=== PATIENT | male | born 1945 | race Caucasian/White ===

== ENCOUNTER 2019-07-17 14:04 | Inpatient (IN) ==
[2019-07-17 15:02] LABS: Basophils % 0.1 % (0.0-0.8); Eosinophils % 0.1 % (0.00-10.9); Hematocrit 42.6 VOL% (42.0-52.0); Hemoglobin 14.4 GM/DL (14.0-18.0); Immature Granulocytes % 0.4 %; Immature Granulocytes Absolute 0.05 #; Lymphocytes # 0.5 10*3/uL (1.4-4.0); Lymphocytes % 4.1 % (21.2-54.2); Mean Corpuscular HGB Conc 33.8 GM/DL (32-36); Mean Corpuscular Volume 91.6 FL (87-102); Monocytes % 4.8 % (1.7-12.7); Neutrophils % 90.5 % (38.7-73.9); Platelet Count 162 T/CUMM (130-400); Red Blood Count 4.65 MC/CUMM (3.8-5.5); Red Cell Distribution Width 13.5 % (9.3-17.3); White Blood Count 12.1 T/CUMM (4-12)
[2019-07-17 15:21] LABS: Lymphocytes 5 % (20-55); Ovalocytes Slight; Platelet Estimate Normal; Segmented Neutrophils 90 % (50-85); Total Cells Counted 100
[2019-07-17 15:29] LABS: Albumin 3.7 G/DL (3.4-5.0); Calcium 8.4 MG/DL (8.5-10.1); Osmolality,Calculated 280.7 MOS/KG (273-304); Total Protein 6.9 G/DL (6.4-8.3)
[2019-07-17 15:33] LABS: Apearance,Urine CLEAR (Clear); Bilirubin,Urine Negative (Negative); Blood, Urine Negative (Negative); Glucose,Urine (UA) 50 mg/dL (Negative); Ketones,Urine 5 mg/dL (Negative); Mucus,Urine Occasional /LPF (Occasional); Nitrite,Urine Negative (Negative); Protein,Urine Negative; RBC,Urine 3 /HPF (0-4); Squamous Epithelial Cell,Urine Occasional /HPF (0-10); Urine Color Dark yellow (Yellow); Urine Specific Gravity 1.027 (1.001-1.035); WBC,Urine 1 /HPF (0-6)
[2019-07-17] MEDS ORDERED: CIPROFLOXACIN INJ 400 MG in PREMIX 1 EACH IV STA (16:14)
[2019-07-17] MEDS ORDERED: metroNIDAZOLE INJ 500 MG in PREMIX 1 EACH IV STA (16:14)
[2019-07-17] MEDS ORDERED: SODIUM CHLORIDE 0.9% 1,000 ML IV STA (16:14)
[2019-07-17] MEDS ORDERED: ONDANSETRON 4 MG/2 ML VIAL IV STA (16:16)
[2019-07-17] MEDS ORDERED: MORPHINE 4 MG/1 ML VIAL IV ONE (16:16)
[2019-07-17] MEDS ORDERED: diphenhydrAMINE CAP 25 MG CAPSULE PO PRN (16:30)
[2019-07-17] MEDS ORDERED: ZALEPLON 5 MG CAPSULE PO PRN (16:30)
[2019-07-17] MEDS ORDERED: PROMETHAZINE 25 MG TABLET PO PRN (16:30)
[2019-07-17] MEDS ORDERED: guaiFENesin/DM ER 600-30 MG TABLET PO PRN (16:30)
[2019-07-17] MEDS ORDERED: ACETAMINOPHEN 325 MG TABLET ONE (16:52)
[2019-07-17] MEDS ORDERED: GLUCAGON 1 MG VIAL IM PRN (16:58)
[2019-07-17] MEDS ORDERED: DEXTROSE 50% 25 GM/50 ML VIAL IV PRN (16:58)
[2019-07-17] MEDS ORDERED: INFLUENZA VIRUS VACCINE 0.5 ML SYRINGE IM ONE (18:43)
[2019-07-17] MEDS: cefTRIAXone 1,000 MG in SYRINGE 1 EACH IV SCH (19:03)
[2019-07-17] MEDS: PANTOPRAZOLE 40 MG TABLET PO SCH (19:03)
[2019-07-17] MEDS: SODIUM CHLORIDE 0.9% 1,000 ML IV SCH (19:03)
[2019-07-17] MEDS: INSULIN LISPRO 100 UNIT/ML SUBCUT SCH (20:26)
[2019-07-17] MEDS: FENOFIBRATE 145 MG TABLET PO SCH (20:42)
[2019-07-17] MEDS: EZETIMIBE 10 MG TABLET PO SCH (20:42)
[2019-07-17] MEDS: carvediloL 6.25 MG TABLET PO SCH (20:43)
[2019-07-17] MEDS: SIMVASTATIN 40 MG TABLET PO SCH (20:43)
[2019-07-17] MEDS: clonazePAM 0.5 MG TABLET PO PRN (20:47)
[2019-07-17] MEDS: ENOXAPARIN 40 MG/0.4 ML SYRINGE SUBCUT SCH (23:15)
[2019-07-18] MEDS: metroNIDAZOLE INJ 500 MG in PREMIX 1 EACH IV SCH ×3 (00:33→15:37)
[2019-07-18 04:51] LABS: Basophils % 0.2 % (0.0-0.8); Hematocrit 38.3 VOL% (42.0-52.0); Hemoglobin 12.9 GM/DL (14.0-18.0); Immature Granulocytes % 0.5 %; Immature Granulocytes Absolute 0.07 #; Lymphocytes # 0.9 10*3/uL (1.4-4.0); Lymphocytes % 6.1 % (21.2-54.2); Mean Corpuscular HGB Conc 33.7 GM/DL (32-36); Mean Corpuscular Volume 91.8 FL (87-102); Mean Platelet Volume 10.6 FL (9.6-12.0); Monocytes % 3.9 % (1.7-12.7); Neutrophils % 89.3 % (38.7-73.9); Platelet Count 151 T/CUMM (130-400); Red Blood Count 4.17 MC/CUMM (3.8-5.5); Red Cell Distribution Width 13.6 % (9.3-17.3)
[2019-07-18 05:17] LABS: Albumin 3.2 G/DL (3.4-5.0); Bilirubin,Total 1.2 MG/DL (0.2-1.0); Calcium 8.2 MG/DL (8.5-10.1); Total Protein 6.3 G/DL (6.4-8.3)
[2019-07-18] MEDS: INSULIN LISPRO 100 UNIT/ML SUBCUT SCH ×4 (08:09→22:18)
[2019-07-18] MEDS: CLOPIDOGREL 75 MG TABLET PO SCH (08:18)
[2019-07-18] MEDS: PANTOPRAZOLE 40 MG TABLET PO SCH (08:18)
[2019-07-18] MEDS: ASPIRIN EC 325 MG TABLET PO SCH (08:18)
[2019-07-18] MEDS: PARoxetine 20 MG TABLET PO SCH (08:18)
[2019-07-18] MEDS: SODIUM CHLORIDE 0.9% 1,000 ML IV SCH ×2 (08:27→22:19)
[2019-07-18] MEDS: carvediloL 6.25 MG TABLET PO SCH ×2 (09:53→20:45)
[2019-07-18] MEDS: POTASSIUM CHLORIDE 20 MEQ TABLET PO PRN ×4 (09:57→20:46)
[2019-07-18] MEDS: ONDANSETRON 4 MG/2 ML VIAL IV PRN (15:36)
[2019-07-18] MEDS: cefTRIAXone 1,000 MG in SYRINGE 1 EACH IV SCH (17:53)
[2019-07-18] MEDS: clonazePAM 0.5 MG TABLET PO PRN (20:45)
[2019-07-18] MEDS: FENOFIBRATE 145 MG TABLET PO SCH (20:45)
[2019-07-18] MEDS: SIMVASTATIN 40 MG TABLET PO SCH (20:45)
[2019-07-18] MEDS: EZETIMIBE 10 MG TABLET PO SCH (20:47)
[2019-07-18] MEDS: ENOXAPARIN 40 MG/0.4 ML SYRINGE SUBCUT SCH (20:51)
[2019-07-18] MEDS: MORPHINE 4 MG/1 ML VIAL IV PRN (22:13)
[2019-07-19] MEDS: metroNIDAZOLE INJ 500 MG in PREMIX 1 EACH IV SCH ×3 (00:59→17:10)
[2019-07-19] MEDS: MORPHINE 4 MG/1 ML VIAL IV PRN (05:12)
[2019-07-19] MEDS: INSULIN LISPRO 100 UNIT/ML SUBCUT SCH ×4 (07:40→21:58)
[2019-07-19 08:19] LABS: Basophils % 0.2 % (0.0-0.8); Eosinophils % 0.3 % (0.00-10.9); Immature Granulocytes % 0.9 %; Immature Granulocytes Absolute 0.11 #; Lymphocytes # 0.6 10*3/uL (1.4-4.0); Lymphocytes % 4.8 % (21.2-54.2); Mean Corpuscular HGB Conc 32.5 GM/DL (32-36); Mean Corpuscular Volume 94.1 FL (87-102); Mean Platelet Volume 10.4 FL (9.6-12.0); Neutrophils % 89.8 % (38.7-73.9); Platelet Count 152 T/CUMM (130-400); Red Blood Count 4.25 MC/CUMM (3.8-5.5); White Blood Count 12.2 T/CUMM (4-12)
[2019-07-19 08:40] LABS: Albumin 2.9 G/DL (3.4-5.0); Bilirubin,Direct 0.27 MG/DL (0.0-0.20); Bilirubin,Indirect 1.1 MG/DL (0.0-1.0); Bilirubin,Total 1.4 MG/DL (0.2-1.0); Osmolality,Calculated 282.1 MOS/KG (273-304); Total Protein 5.7 G/DL (6.4-8.3)
[2019-07-19 08:47] LABS: Hypochromasia 1+; Lymphocytes 10 % (20-55); Platelet Estimate Adequate; Segmented Neutrophils 86 % (50-85); Total Cells Counted 100
[2019-07-19] MEDS: ASPIRIN EC 325 MG TABLET PO SCH (09:22)
[2019-07-19] MEDS: PANTOPRAZOLE 40 MG TABLET PO SCH (09:23)
[2019-07-19] MEDS: CLOPIDOGREL 75 MG TABLET PO SCH (09:23)
[2019-07-19] MEDS: carvediloL 6.25 MG TABLET PO SCH ×2 (09:23→21:54)
[2019-07-19] MEDS: PARoxetine 20 MG TABLET PO SCH (09:23)
[2019-07-19] MEDS: SODIUM CHLORIDE 0.9% 1,000 ML IV SCH (14:14)
[2019-07-19] MEDS: SIMVASTATIN 40 MG TABLET PO SCH (21:53)
[2019-07-19] MEDS: cefTRIAXone 1,000 MG in SYRINGE 1 EACH IV SCH (21:54)
[2019-07-19] MEDS: ENOXAPARIN 40 MG/0.4 ML SYRINGE SUBCUT SCH (21:54)
[2019-07-19] MEDS: FENOFIBRATE 145 MG TABLET PO SCH (21:54)
[2019-07-19] MEDS: EZETIMIBE 10 MG TABLET PO SCH (21:54)
[2019-07-20] MEDS: metroNIDAZOLE INJ 500 MG in PREMIX 1 EACH IV SCH ×3 (02:19→17:51)
[2019-07-20] MEDS: SODIUM CHLORIDE 0.9% 1,000 ML IV SCH ×2 (04:40→22:05)
[2019-07-20 05:07] LABS: Basophils % 0.1 % (0.0-0.8); Eosinophils # 0.2 10*3/uL (0.0-0.87); Eosinophils % 1.6 % (0.00-10.9); Hemoglobin 13.3 GM/DL (14.0-18.0); Immature Granulocytes % 0.6 %; Immature Granulocytes Absolute 0.06 #; Lymphocytes # 0.7 10*3/uL (1.4-4.0); Lymphocytes % 6.4 % (21.2-54.2); Mean Corpuscular HGB Conc 33.3 GM/DL (32-36); Mean Corpuscular Volume 93.5 FL (87-102); Mean Platelet Volume 10.5 FL (9.6-12.0); Monocytes % 5.7 % (1.7-12.7); Neutrophils % 85.6 % (38.7-73.9); Platelet Count 163 T/CUMM (130-400); Red Blood Count 4.28 MC/CUMM (3.8-5.5); Red Cell Distribution Width 13.7 % (9.3-17.3); White Blood Count 10.2 T/CUMM (4-12)
[2019-07-20 05:20] LABS: Albumin 2.7 G/DL (3.4-5.0); Bilirubin,Direct 0.2 MG/DL (0.0-0.20); Bilirubin,Indirect 0.7 MG/DL (0.0-1.0); Bilirubin,Total 0.9 MG/DL (0.2-1.0); Calcium 8.3 MG/DL (8.5-10.1); Osmolality,Calculated 282.1 MOS/KG (273-304); Total Protein 6.2 G/DL (6.4-8.3)
[2019-07-20] MEDS: INSULIN LISPRO 100 UNIT/ML SUBCUT SCH ×4 (08:09→22:02)
[2019-07-20] MEDS: POTASSIUM CHLORIDE 20 MEQ TABLET PO PRN ×2 (09:02→18:04)
[2019-07-20] MEDS: PARoxetine 20 MG TABLET PO SCH (09:02)
[2019-07-20] MEDS: ASPIRIN EC 325 MG TABLET PO SCH (09:03)
[2019-07-20] MEDS: PANTOPRAZOLE 40 MG TABLET PO SCH (09:03)
[2019-07-20] MEDS: CLOPIDOGREL 75 MG TABLET PO SCH (09:03)
[2019-07-20] MEDS: carvediloL 6.25 MG TABLET PO SCH ×2 (09:03→22:02)
[2019-07-20] MEDS: CIPROFLOXACIN INJ 400 MG in PREMIX 1 EACH IV SCH (14:51)
[2019-07-20] MEDS: ONDANSETRON 4 MG/2 ML VIAL IV PRN (16:27)
[2019-07-20] MEDS: EZETIMIBE 10 MG TABLET PO SCH (22:02)
[2019-07-20] MEDS: SIMVASTATIN 40 MG TABLET PO SCH (22:02)
[2019-07-20] MEDS: ENOXAPARIN 40 MG/0.4 ML SYRINGE SUBCUT SCH (22:02)
[2019-07-20] MEDS: FENOFIBRATE 145 MG TABLET PO SCH (22:02)
[2019-07-21] MEDS: MORPHINE 4 MG/1 ML VIAL IV PRN (00:27)
[2019-07-21] MEDS: metroNIDAZOLE INJ 500 MG in PREMIX 1 EACH IV SCH ×3 (00:29→18:14)
[2019-07-21] MEDS: CIPROFLOXACIN INJ 400 MG in PREMIX 1 EACH IV SCH ×2 (06:28→17:10)
[2019-07-21] MEDS: INSULIN LISPRO 100 UNIT/ML SUBCUT SCH ×5 (10:42→21:59)
[2019-07-21] MEDS: CLOPIDOGREL 75 MG TABLET PO SCH (11:54)
[2019-07-21] MEDS: PANTOPRAZOLE 40 MG TABLET PO SCH (11:54)
[2019-07-21] MEDS: PARoxetine 20 MG TABLET PO SCH (11:54)
[2019-07-21] MEDS: ASPIRIN EC 325 MG TABLET PO SCH (11:54)
[2019-07-21] MEDS: carvediloL 6.25 MG TABLET PO SCH ×2 (11:55→21:57)
[2019-07-21] MEDS: SODIUM CHLORIDE 0.9% 1,000 ML IV SCH (12:01)
[2019-07-21] MEDS: ENOXAPARIN 40 MG/0.4 ML SYRINGE SUBCUT SCH (21:56)
[2019-07-21] MEDS: SIMVASTATIN 40 MG TABLET PO SCH (21:56)
[2019-07-21] MEDS: FENOFIBRATE 145 MG TABLET PO SCH (21:57)
[2019-07-21] MEDS: EZETIMIBE 10 MG TABLET PO SCH (21:57)
[2019-07-21] MEDS: ONDANSETRON 4 MG/2 ML VIAL IV PRN (22:09)
[2019-07-22] MEDS: SODIUM CHLORIDE 0.9% 1,000 ML IV SCH ×2 (00:51→13:48)
[2019-07-22] MEDS: metroNIDAZOLE INJ 500 MG in PREMIX 1 EACH IV SCH ×2 (00:51→11:27)
[2019-07-22] MEDS: CIPROFLOXACIN INJ 400 MG in PREMIX 1 EACH IV SCH (03:40)
[2019-07-22] MEDS: INSULIN LISPRO 100 UNIT/ML SUBCUT SCH ×2 (07:48→13:14)
[2019-07-22 11:24] VITALS: BP 141/64
[2019-07-22] MEDS: PARoxetine 20 MG TABLET PO SCH (11:25)
[2019-07-22] MEDS: ASPIRIN EC 325 MG TABLET PO SCH (11:26)
[2019-07-22] MEDS: CLOPIDOGREL 75 MG TABLET PO SCH (11:26)
[2019-07-22] MEDS: carvediloL 6.25 MG TABLET PO SCH (11:26)
[2019-07-22] MEDS: PANTOPRAZOLE 40 MG TABLET PO SCH (11:26)
== END 2019-07-22 13:46 | disposition home or self-care (01) | DRG 392 ==
LOC: N.ED 14:04 → N.EDINP 17:17 → SUATTDRO 17:17 → N.2E 17:59
PROVIDERS: ADMIT Phlebology; ATTEND Internal Medicine